=== PATIENT | male | born 1995 | race African-American/Black ===

== ENCOUNTER 2022-01-20 04:16 | Emergency (ER) | payer MEDICAID, OTHER ==
[~2022-01-20] VITALS: Ht 172.7 cm; Wt 148.0 kg
[2022-01-20 05:07] VITALS: BP 127/98
[2022-01-20] MEDS ORDERED: IBUPROFEN 800 MG TAB PO ONE (07:15)
[2022-01-20] MEDS ORDERED: CEPH-509 PO (07:27)
[2022-01-20] MEDS ORDERED: NAPR500T31 PO (07:27)
== END 2022-01-20 07:35 | disposition home or self-care (01) ==
LOC: ER 04:16
DX: L73.9 Follicular disorder, unspecified (principal); Z79.899 Other long term (current) drug therapy